=== PATIENT | female | born 1940 | race Caucasian/White ===

== ENCOUNTER → 2017-12-07 | Outpatient (CLI) | payer MEDICARE ==
[~2017-12-07] MED LIST: ALEVE220 M1 PO; APAP650 PO; AREDS; AREDS EYE SUPPLEMENT PO; ASPIR 8181 MG PO; ASPIRIN81 M2 PO; BENADRYL25 MG PO; CARAFATE 1 GM TA1 GM PO; COLACE100 MG PO; COZAAR100 MG PO; FLOMAX0.4 MG PO; HYDROCODON-ACE1 EAC7 PO; HYDROCODONE-AP1 EAC6 PO; IBUPROFEN 200200 M1 PO; LIDODERM 5%1 PATC1 TOP; METAMUCIL PACK3.4 GM PO; MILK OF MA2400 MG/10 PO; MOBIC15 MG PO; NEURONTIN 300300 M1 PO; NORCO 5-325 TA1 EACH PO; ONDANSETRON HCL4 M2 PO; PERCOCET PO; PROTONIX40 MG PO; RESTORIL15 MG PO; TRAMADOL 50 MG50 MG PO; TRAZODONE PO; VITAMIN D1000 UNI1 PO; WELLBUTRIN SR150 MG PO; XARELTO10 MG PO; XARELTO20 MG PO; [UNRECOGNIZED DRUG - OTHER]
== END ==
LOC: M.MRI 14:30
DX: S83.282A Other tear of lateral meniscus, current injury, left knee, initial encounter (principal); M17.12 Unilateral primary osteoarthritis, left knee; M25.462 Effusion, left knee; X58.XXXA Exposure to other specified factors, initial encounter; Y93.89 Activity, other specified; Y92.89 Other specified places as the place of occurrence of the external cause; Y99.8 Other external cause status; Z96.652 Presence of left artificial knee joint

== ENCOUNTER 2017-12-20 15:26 | Emergency (ER) | payer MEDICARE ==
[~2017-12-20] VITALS: Ht 162.6 cm; Wt 63.5 kg
[~2017-12-20 15:26] MED LIST changes: -APAP650 PO; -AREDS EYE SUPPLEMENT PO; -BENADRYL25 MG PO; -COLACE100 MG PO; -FLOMAX0.4 MG PO; -HYDROCODON-ACE1 EAC7 PO; -HYDROCODONE-AP1 EAC6 PO; -METAMUCIL PACK3.4 GM PO; -MILK OF MA2400 MG/10 PO; -NEURONTIN 300300 M1 PO; -ONDANSETRON HCL4 M2 PO; -PERCOCET PO; -XARELTO10 MG PO
[2017-12-20] MEDS ORDERED: AREDS EYE SUPPLEMENT PO (15:36)
[2017-12-20 15:53] LABS: ABSOLUTE BASOPHILS 0.1 thou/uL (0.0-0.2); ABSOLUTE EOSINOPHILS 0.1 thou/uL (0.0-0.7); ABSOLUTE LYMPHOCYTES 2.7 thou/uL (0.8-5.3); ABSOLUTE MONOCYTES 0.8 thou/uL (0.0-1.2); ABSOLUTE NEUTROPHILS 3.9 thou/uL (1.6-8.1); BASOPHILS 0.7 %; EOSINOPHILS 1.8 %; HEMATOCRIT 40.6 % (37.0-47.0); HEMOGLOBIN 13.5 gm/dL (12.0-15.0); LYMPHOCYTES 35.7 %; MCH 30.9 pg (26.0-34.0); MCHC 33.3 g/dL (28.0-37.0); MCV 92.8 fL (80.0-100.0); MONOCYTES 10.6 %; MPV 8.1 fl. (7.2-11.1); NUCLEATED RBCS 0 /100WBC; PLATELET COUNT* 164 thou/uL (150-400); POLYS 51.2 %; RBC 4.38 mil/uL (4.20-5.00); RDW-CV 14.4 % (10.5-14.5); WBC 7.5 thou/uL (4.0-11.0)
[2017-12-20 16:07] LABS: ANION GAP 3 mmol/L (7-16); BUN 23 mg/dL (7-18); CALCIUM 8.6 mg/dL (8.5-10.1); CHLORIDE 107 mmol/L (98-107); CO2 33 mmol/L (21-32); GLUCOSE 97 mg/dL (70-99); POTASSIUM 3.1 mmol/L (3.5-5.1); SODIUM 143 mmol/L (136-145)
[2017-12-20 16:09] LABS: APTT 26.1 Seconds (25.0-31.3); PROTIME 9.7 Seconds (9.20-11.50)
[2017-12-20 16:28] LABS: ALBUMIN 3.2 g/dL (3.4-5.0); ALKALINE PHOSPHATASE 99 U/L (46-116); CK-MB MASS 0.9 ng/mL (<0.5-3.6); LIPASE 127 U/L (73-393); MAGNESIUM 2.3 mg/dL (1.8-2.4); NT-PRO BRAIN NAT PEPTIDE 451 pg/mL (<300); SGOT 21 U/L (15-37); SGPT 19 U/L (30-65); TOTAL BILIRUBIN 0.4 mg/dL (<0.1-1.0); TOTAL PROTEIN 6.6 g/dL (6.4-8.2); TROPONIN-I LEVEL <0.06 ng/mL (<0.06)
[2017-12-20 17:21] VITALS: BP 166/69
--- NOTE | 2017-12-22 12:52 | EKG ---
[place] [address] ELECTROCARDIOGRAM REPORT Name: MALLORIE HODGES Room: [facility]#: [id number] Admission: 12/20/17 Attend Phys: Discharge: 12/20/17 Date of : 36 Report #: [id number] THIS REPORT FOR: //name// [facility] ED Test Date: 2017-12-20 Test Time: 15:31:16 Pat Name: MALLORIE HODGES Department: Room: Gender: F Tug Master: : 1940 Requested By: Anthony Navarro Order Number: [id number] MD: Wai Wood Measurements Intervals [place] Rate: 77 P: 62 LA: 150 QRS: -52 QRSD: 96 T: 32 QT: 413 QTc: 468 Interpretive Statements Sinus rhythm Left anterior fascicular block Anterior infarct, old Compared to ECG 04/27/2017 11:54:54 Myocardial infarct finding now present Left ventricular hypertrophy no longer present Electronically Signed On 12-22-2017 12:52:01 CDT by Wai Wood [email or web address] <ELECTRONICALLY SIGNED> By: Wai Wood MD, [facility] 12/22/17 1252 1531 1531 Wai Wood MD, [facility] /EPI
[2017-12-22] MEDS ORDERED: NEURONTIN 300300 M1 PO (14:17)
== END 2017-12-20 17:21 | disposition home or self-care (01) ==
LOC: M.ERS 15:26
PROVIDERS: Family Medicine
DX: Z71.1 Person with feared health complaint in whom no diagnosis is made (principal); Z96.643 Presence of artificial hip joint, bilateral; Z90.12 Acquired absence of left breast and nipple; Z90.49 Acquired absence of other specified parts of digestive tract; Z88.0 Allergy status to penicillin; Z88.1 Allergy status to other antibiotic agents

== ENCOUNTER 2018-01-03 06:15 | Inpatient (IN) | payer MEDICARE ==
[2017-12-22 10:56] LABS: URINE BILIRUBIN NEGATIVE (Negative); URINE BLOOD NEGATIVE (Negative); URINE CLARITY CLEAR; URINE COLOR YELLOW; URINE GLUCOSE-RANDOM NEGATIVE (Negative); URINE KETONES NEGATIVE (Negative); URINE LEUKOCYTES-REFLEX NEGATIVE (Negative); URINE NITRITE-REFLEX NEGATIVE (Negative); URINE PROTEIN NEGATIVE (Negative); URINE SPECIFIC GRAVITY <= 1.005 (1.005-1.030); URINE UROBILINOGEN 0.2 E.U./dl (0.2-1.0)
[~2018-01-03] VITALS: Ht 170.2 cm; Wt 62.6 kg
[~2018-01-03 06:15] MED LIST changes: +AREDS EYE SUPPLEMENT PO; +NEURONTIN 300300 M1 PO
[2018-01-03 07:37] VITALS: BP 193/99
--- NOTE | 2018-01-03 09:35 | NUR ---
RECIEVED O.T. ORDERS. WILL DEFER TO P.T. AND NURSING AT THIS TIME. PLEASE ORDER FURTHER O.T. SERVICES AT THIS TIME.
[2018-01-03 11:30] VITALS: BP 159/74
--- NOTE | 2018-01-03 12:53 | NUR ---
PATIENT ARRIVED TO UNIT AT 1138. ALERT AND ORIENTED X4. IV IS PATENT AND INFUSING. PAIN BEING MANAGED WITH IV PAIN MEDICATION RECIEVED IN PACU. DENIES NAUSESA AT THIS TIME. PATIENT HAS BEEN ORIENTED TO ROOM. VSS ON 2L O2. CALL LIGHT IS WITHIN REACH. NURSING WILL CONTINUE TO MONITOR.
[2018-01-03 16:00] VITALS: BP 157/78
--- NOTE | 2018-01-03 18:19 | NUR ---
PT IS A&OX4. VITAL SIGNS ARE STABLE ON 2L OF O2 PER NASAL CANNULA WITH CAP-NO IN PLACE. NO REPORTS OF SOA. NAUSEA MAINTAINED WITH IV MEDS. PAIN MAINTAINED WITH PO AND IV MEDS. PT HAS BEEN USING BEDPAN AND HAS NOT AMBULATED YET. REPOSITIONING SELF IN BED. HOURLY ROUNDING MAINTAINED. BED ALARM IN PLACE. CALL LIGHT WITHIN REACH. WILL CONTINUE TO MONITOR.
[2018-01-04 01:08] VITALS: BP 115/61
[2018-01-04 05:39] LABS: HEMATOCRIT 35.1 % (37.0-47.0); HEMOGLOBIN 11.5 gm/dL (12.0-15.0)
[2018-01-04 05:45] VITALS: BP 134/67
--- NOTE | 2018-01-04 06:51 | NUR ---
PATIENT PARTIALLY PROGRESSING TOWARDS GOALS: PATIENT SLEPT WELL THROUGHOUT SHIFT. PATIENT HAD URINARY RETENTION WITH >500 FOUND IN BLADDER AT BEGINNING OF SHIFT. PATIENT CONTINUING TO REFUSE WARD CATHETER. ORDERS RECEIVED FOR FLOMAX. PATIENT NOW VOIDING APPROPRIATELY. PATIENT HAD ONE EPISODE OF INCONTINENCE DURING SLEEP. WALLACE CARE PROVIDED. PATIENT TOLERATED CPM. HOURLY ROUNDING OBSERVED. CALL LIGHT WITHIN REACH
[2018-01-04 08:00] VITALS: BP 162/83
--- NOTE | 2018-01-04 11:28 | NUR ---
ASSUMED CARE OF PATIENT THIS AM AT 0730. PATIENT IS ALERT AND ORIENTED X 4. SHE C/O PAIN TO HER SURGICAL SITE AND GENERALIZED PAIN. PATIENT MEDICATED FOR PAIN THIS AM. PATIENT LATER SAID PAIN MEDICATION WAS NOT EFFECTIVE. PATIENT REMEDICATED FOR PAIN WITH OXYCODONE 5 MG. PATIENT C/O NAUSEA SHORTLY AFTER AND VOMITED ABOUT 2OO ML UNDIGESTED FOOD. PATIENT MEDICATED FOR NAUSEA. SHE STATED NAUSEA HAS RESOLVED. IV FLUIDS INFUSING. PATIENT UP TO THE CHAIR WITH PT. SHE HAS BEEN INCONTINENT OF URINE X 3 TODAY.
--- NOTE | 2018-01-04 16:27 | NUR ---
MET WITH PT AND FRIEND/DISHA SAAB. PT LIVES ALONE IN [place], DISHA LIVES [place]OSS [address]. DISHA PLANS TO STAY WITH PT AT DC FOR A LEAST A WEEK. PT HAS BEEN INDEPENDENT PRIOR TO ADMIT. SHE HAS HAD 2 HIP SURGERIES AND BEEN TO REHAB AT [facility]. SHE REFUSES TO CONSIDER SNF STATING THAT SHE DIDN'T GET GOOD CARE THERE, WANTS TO GO HOME. PT HAS WALKER AND WHEELED WALKER, TOILET RISER AND TUB BENCH. SHE HASN'T HAD HH, DISCUSSED OPTIONS AND CHOSE [facility] THEY WORK WITH DR ENRIQUEZ. PT'S NEPHEW EMMA TRACEY IS HER DPOA. PT ANXIOUS AND STATING THAT THERAPY WAS 'HARD' TODAY. TALKED WITH HER ABOUT POC AND THERAPY X2 TOMORROW AGAIN WITH POSSIBLE DC ON DAY 2. SHE VERBALIZED UNDERSTANDING. WILL FOLLOW
[2018-01-04 16:31] VITALS: BP 162/83
[2018-01-04 17:49] VITALS: BP 141/89
[2018-01-04 20:49] VITALS: BP 175/88
[2018-01-05 03:46] LABS: HEMATOCRIT 42.7 % (37.0-47.0)
[2018-01-05 03:47] LABS: HEMOGLOBIN 13.8 gm/dL (12.0-15.0)
--- NOTE | 2018-01-05 04:58 | NUR ---
PT IS ABLE TO COMMUNICATE HER NEEDS TO STAFF EFFECTIVELY. SHE HAS DENIED THE NEED FOR UNSCHEDULED PAIN MEDICATIONS UP TO THIS TIME. CPM IN USE DURING THIS SHIFT. PT UP TO COMODE SEVERAL TIMES SO FAR THIS SHIFT; WALKER, GAIT BELT AND 1-2 PERSON ASSIST. POLAR PAD IN PLACE DURING THIS SHIFT.
[2018-01-05 05:07] VITALS: BP 170/90
[2018-01-05 08:00] VITALS: BP 119/93
--- NOTE | 2018-01-05 14:32 | NUR ---
SPOKE WITH PT.AND FRIEND PAPO AT BEDSIDE. P.T. AND RECOMMENDING PT.GO TO SNF AT DISCHARGE. PT.AGREEABLE. HAD MANY QUESTIONS. SHE WOULD LIKE TO GO TO [facility]. HAD MANY QUESTIONS ABOUT ROUTINE OVER THERE. HER DOG IS IN A DOGGY RESORT FOR THIS WEEK AND THEN PAPO WILL TAKE CARE OF HER THE TIME SHE IS IN SNF. PT.SEEMS SAD THAT SHE WILL NOT SEE HER DOG IN SEVERAL WEEKS. WILL MAKE REFERRAL TO [facility] FOR PT.
[2018-01-05 15:28] VITALS: BP 138/74
--- NOTE | 2018-01-05 16:53 | NUR ---
VASHTI/'S MANOR CAME TO VISIT WITH PT. SHE SAID THEY CAN ACCEPT PT.TOMORROW TO A SNF BED. PT.AGREEABLE.
--- NOTE | 2018-01-05 19:03 | NUR ---
VSS, ASSUMED CARE IN THE AM, ASSESSMENT PERFROMED AND CHARTED, FALL PRECAUTIONS IN PLACE AND CALL LIGHT IN RECAH, PT IS A&O4 AND ON RA SHE GETS UP WITH ONE AND WALK, STATES PAIN IN LEFT KNEE AND RATES IT 3 OUT OF 10, PT GOAL IS TO WORK WITH PT AND FIND PLACEMENT AT SNF. AT THIS TIME HOULRY ROUNDS COMPLETED ABD PT IS IN BED WITH CPM GOING AT -5/75, NO OTHER STATUS CHANGE AT THIS TIME,
[2018-01-05 20:45] VITALS: BP 153/81
[2018-01-05 23:54] VITALS: BP 133/63
[2018-01-06 03:41] VITALS: BP 143/65
[2018-01-06 03:46] VITALS: BP 116/62
--- NOTE | 2018-01-06 06:00 | NUR ---
PATIENT HAS REMAINED ALERT AND ORIENTED X 4 THROUGHOUT THE SHIFT AND RESTING QUIETLY ON HOURLY ROUNDS. DRESSING LEFT KNEE CLEAN AND DRY. CPM IN USE AT SHIFT CHANGE. TOLERATED WELL. MEDICATED FOR PAIN X 2 OF THIS WRITING. PASSING GAS, NO BM. MILK OF MAGNESIA WITH COLACE PROVIDED AT HS. MOD ASSIST OF ONE FOR TRANSFERS TO BEDSIDE COMMODE WITH GAIT BELT AND WALKER. VITAL SIGNS STABLE. CONTINUE TO MONITOR.
[2018-01-06 07:30] VITALS: BP 135/74
--- NOTE | 2018-01-06 12:02 | NUR ---
PT WILL DC TO [facility]ILL[facility]ACILITY. FAMILY AGREEABLE. FAXED DC ORDERS AND SPOKE WITH KHALIDA ON THE PHONE. WE SHOULD ANTICIPATE A DC TODAY.
[2018-01-06] MEDS ORDERED: APAP650 PO (12:15)
[2018-01-06] MEDS ORDERED: BENADRYL25 MG PO (12:16)
[2018-01-06] MEDS ORDERED: COLACE100 MG PO (12:17)
[2018-01-06] MEDS ORDERED: FLOMAX0.4 MG PO (12:18)
--- NOTE | 2018-01-06 12:32 | NUR ---
PER KHALIDA AT [facility], THEIR [employer] VAN WILL PICK PT.UP BETWEEN 1:00-1:30. PT.INFORMED. SHE WILL CALL HER FRIEND TO COME INCOME AUDITOR SOME OF THER PERSONAL ITEMS. CHART COPIED TO GO WITH PT. NURSING TO CALL REPORT.
[2018-01-06] MEDS ORDERED: HYDROCODON-ACE1 EAC7 PO (12:38)
[2018-01-06] MEDS ORDERED: METAMUCIL PACK3.4 GM PO (12:40)
[2018-01-06] MEDS ORDERED: MILK OF MA2400 MG/10 PO (12:41)
[2018-01-06] MEDS ORDERED: PERCOCET PO (12:42)
[2018-01-06] MEDS ORDERED: XARELTO10 MG PO (12:44)
[2018-01-06] MEDS ORDERED: ONDANSETRON HCL4 M2 PO (12:44)
[2018-01-06 12:47] VITALS: BP 135/74
--- NOTE | 2018-01-06 14:50 | NUR ---
PATIENT A&OX4, ROOM AIR, NO IV ACCESS AT THIS TIME. UP WITH ASSISTX1 WITH GAITBELT AND WALKER. WALKER IS FROM PATIENT'S HOME, TAGGED AND SENT WITH PATIENT AT DISCHARGE. C/O PAIN TO LEFT KNEE, PARTIAL RELIEF WITH MEDICATION. POLAR PACK SENT HOME WITH FAMILY FRIEND. PATIENT DISCHARGED TO [facility], CALLED AND GAVE REPORT TO SEPTEMBER. VERBALIZES UNDERSTANDING, NO FURTHER QUESTIONS AT THIS TIME. APPROPRIATE AND COOPORATIVE WITH CARE. PATIENT LEFT UNIT AT 1420 VIA W/C WITH ALL BELONGINGS. NOTHING LEFT BEHIND.
--- NOTE | 2018-01-07 10:28 | NUR ---
cell phone newcomer hostess given to carly at [facility]
--- NOTE | 2018-01-10 08:36 | OP ---
[facility] [address] [place] [address] OPERATIVE REPORT Name: MALLORIE HODGES Room: [address] IN M.R.#: [id number] Admission: 01/03/18 Attend Phys: Joceline Doshi Discharge: 01/06/18 Date of : 36 Report #: [id number] THIS REPORT FOR: //name// CC: Gen Partida DATE OF SERVICE: 01/03/2018 PREOPERATIVE DIAGNOSIS: Left knee osteoarthritis. POSTOPERATIVE DIAGNOSIS: Left knee osteoarthritis. PROCEDURE: Left total knee arthroplasty. SURGEON: Gen Calle II, DO COLOR PASTE MIXER: NEGRO Jimenez. ANESTHESIA: General endotracheal. ESTIMATED BLOOD LOSS: 50 mL. ANTIBIOTICS: Per operative record. DRAINS: Medium Hemovac. COMPLICATIONS: None. CONDITION OF THE PATIENT: Stable to recovery room. IMPLANTS: Listed in the operative record and progress note. BRIEF HISTORY: The patient was seen in preoperative area. Preoperative H and P was performed. Site was marked, questions were answered. Risks and benefits were discussed with the patient in detail about surgery. The patient wished to proceed with surgery, assumed all risks. OPERATIVE PROCEDURE: The patient was taken to the operative suite, placed supine on the operating table, given appropriate anesthesia. Well-padded tourniquet was applied to the upper thigh, which was inflated to 300 mmHg after gravity exsanguination. The operative knee was sterilely prepped and draped. Surgery begun by a midline incision, it was carried down through the subcutaneous tissues. A medial parapatellar arthrotomy was performed and carried down to bone. The patella was then everted and excess soft tissue was removed from around the femur. Femoral cutting block was then applied, checked [facility] [address] [place] [id number] OPERATIVE REPORT Name: MALLORIE HODGES Room: [address] IN ..#: [id number] Admission: 01/03/18 Attend Phys: Joceline Doshi Discharge: 01/06/18 Date of : 36 Report #: [id number] with a drop jd for rotational alignment, pinned into appropriate position and appropriate cuts were made. A 4-in-1 cutting block was then applied to check for rotational alignment, pinned into appropriate position and appropriate cuts were made. The tibia was then exposed. The excess meniscus was removed. Retractors were placed on the collateral ligaments. The tibial cutting block was applied, pinned in appropriate position, checked with a drop jd for rotational alignment and slope and appropriate cut was made. The tibial bone was removed. The tibial base plate was then applied, checked for rotational alignment with the drop jd and pinned into appropriate position. The femur was then applied and box cut was reamed. This was then trialed with the appropriate spacer, which showed excellent fit and fill and excellent stability of the knee through all range of motion. Patella was then reamed in appropriate fashion and sized to appropriate size. Three peg holes were drilled and it was then trialed, which shown to have excellent flexion, extension and excellent tracking of the patella within the groove. These trials were then removed. The tibia was punched in appropriate fashion. Bone ends were cleansed with Pulsavac irrigation and the cement was mixed and applied to the final implants. These were then malleted into position and held with the knee in extension and compressed to allow cement to cure. After it cured, excess was removed utilizing a Orient and osteotome. The wound was then copiously irrigated and the final spacer was then malleted into position. The tourniquet was deflated. Hemostasis was maintained with electrocautery. A pain cocktail was injected. PRP gel was sprayed throughout the internal aspects of the knee. Medium Hemovac drain was then applied and the capsule was closed with 2 FiberWire and 1 Vicryl in a [id number] fashion. Skin was then closed with a 2-0 Vicryl and a running 3-0 Monocryl. Dermabond and sterile dressings were applied. Robin wrap and PolarCare applied. The patient was transported to the recovery room in stable fashion. Counts were correct throughout the procedure. <ELECTRONICALLY SIGNED> By: Gen Calle II, DO 01/10/18 0836 0646 0734Gen Calle II, DO /nt
== END 2018-01-06 14:20 | DRG 470 ==
LOC: M.PRE 06:15 → M.TBA 06:58 → M.ORTHSURG 06:58 → M.PRE 09:21 → M.ORTHSURG 11:57 → M.PRE 14:28 → M.ORTHSURG 01-06 14:20
PROVIDERS: Orthopaedic Surgery; ADMIT Internal Medicine
PROC: 0SRD0J9 Replacement of Left Knee Joint with Synthetic Substitute, Cemented, Open Approach (ICD-10-PCS; principal; 2018-01-03)
DX: M17.12 Unilateral primary osteoarthritis, left knee (principal); Z96.643 Presence of artificial hip joint, bilateral; Z90.12 Acquired absence of left breast and nipple; Z88.1 Allergy status to other antibiotic agents; Z88.0 Allergy status to penicillin; Z90.49 Acquired absence of other specified parts of digestive tract; Z92.3 Personal history of irradiation

== ENCOUNTER → 2018-04-03 | Outpatient (CLI) | payer MEDICARE ==
[~2018-04-03] MED LIST changes: +APAP650 PO; +BENADRYL25 MG PO; +COLACE100 MG PO; +FLOMAX0.4 MG PO; +HYDROCODON-ACE1 EAC7 PO; +METAMUCIL PACK3.4 GM PO; +MILK OF MA2400 MG/10 PO; +ONDANSETRON HCL4 M2 PO; +PERCOCET PO; +XARELTO10 MG PO
== END ==
LOC: M.CT 13:00
DX: J98.4 Other disorders of lung (principal); K76.9 Liver disease, unspecified; R91.8 Other nonspecific abnormal finding of lung field

== ENCOUNTER 2018-04-27 08:32 | Emergency (ER) | payer MEDICARE ==
[~2018-04-27] VITALS: Ht 162.6 cm; Wt 62.6 kg
[2018-04-27] MEDS ORDERED: HYDROCODONE-AP1 EAC6 PO (09:42)
[2018-04-27 10:35] VITALS: BP 178/94
== END 2018-04-27 10:36 | disposition home or self-care (01) ==
LOC: M.ERS 08:32
DX: S52.592A Other fractures of lower end of left radius, initial encounter for closed fracture (principal); Z96.643 Presence of artificial hip joint, bilateral; Z90.49 Acquired absence of other specified parts of digestive tract; Z88.1 Allergy status to other antibiotic agents; Z88.0 Allergy status to penicillin; W01.0XXA Fall on same level from slipping, tripping and stumbling without subsequent striking against object, initial encounter; Y93.89 Activity, other specified; Y92.89 Other specified places as the place of occurrence of the external cause; Y99.8 Other external cause status

== ENCOUNTER 2018-07-22 17:48 | Emergency (ER) | payer MEDICARE ==
[~2018-07-22] VITALS: Ht 162.6 cm; Wt 60.3 kg
[~2018-07-22 17:48] MED LIST changes: +HYDROCODONE-AP1 EAC6 PO
[2018-07-22] MEDS ORDERED: ACETAMINOPHEN-1 EAC1 PO (18:04)
[2018-07-22 20:01] VITALS: BP 191/104
== END 2018-07-22 20:02 | disposition home or self-care (01) ==
LOC: M.ERS 17:48
DX: S61.411A Laceration without foreign body of right hand, initial encounter (principal); S00.03XA Contusion of scalp, initial encounter; Z96.643 Presence of artificial hip joint, bilateral; Z96.653 Presence of artificial knee joint, bilateral; Z90.49 Acquired absence of other specified parts of digestive tract; Z90.12 Acquired absence of left breast and nipple; Z88.0 Allergy status to penicillin; Z88.1 Allergy status to other antibiotic agents; W00.0XXA Fall on same level due to ice and snow, initial encounter; Y93.89 Activity, other specified; Y92.89 Other specified places as the place of occurrence of the external cause; Y99.8 Other external cause status

== ENCOUNTER 2018-08-30 11:58 | Emergency (ER) | payer MEDICARE ==
[~2018-08-30] VITALS: Ht 162.6 cm; Wt 56.2 kg
[~2018-08-30 11:58] MED LIST changes: +ACETAMINOPHEN-1 EAC1 PO
[2018-08-30] MEDS ORDERED: MEDROLDOSEPACK PO (12:31)
[2018-08-30 12:44] VITALS: BP 160/96
== END 2018-08-30 12:44 | disposition home or self-care (01) ==
LOC: M.ERS 11:58
DX: M79.641 Pain in right hand (principal); Z88.0 Allergy status to penicillin; Z88.1 Allergy status to other antibiotic agents; Z96.643 Presence of artificial hip joint, bilateral; Z90.49 Acquired absence of other specified parts of digestive tract; Z96.652 Presence of left artificial knee joint; Z90.12 Acquired absence of left breast and nipple

== ENCOUNTER → 2018-12-29 | Outpatient (CLI) | payer MEDICARE ==
[~2018-12-29] MED LIST changes: +MEDROLDOSEPACK PO
== END ==
LOC: M.ULTRA 14:38
DX: M71.21 Synovial cyst of popliteal space [Baker], right knee (principal); Z88.8 Allergy status to other drugs, medicaments and biological substances; Z88.0 Allergy status to penicillin

== ENCOUNTER → 2019-05-18 | Outpatient (CLI) | payer MEDICARE | LOC: M.ULTRA 14:21 | DX: I83.91 Asymptomatic varicose veins of right lower extremity (principal); L03.116 Cellulitis of left lower limb; Z88.8 Allergy status to other drugs, medicaments and biological substances; Z88.0 Allergy status to penicillin ==

== ENCOUNTER 2019-12-27 10:56 | Observation (INO) | payer MEDICARE ==
[~2019-12-27] VITALS: Ht 162.6 cm; Wt 63.0 kg
[2019-12-27 10:56] VITALS: BP 146/97
[2019-12-27] MEDS ORDERED: ELIQUIS2.5 MG PO (11:03)
[2019-12-27 11:55] LABS: ABSOLUTE BASOPHILS 0.1 thou/uL (0.0-0.2); ABSOLUTE EOSINOPHILS 0.1 thou/uL (0.0-0.7); ABSOLUTE LYMPHOCYTES 1.5 thou/uL (0.8-5.3); ABSOLUTE MONOCYTES 0.8 thou/uL (0.0-1.2); ABSOLUTE NEUTROPHILS 5.5 thou/uL (1.6-8.1); EOSINOPHILS 1.5 %; HEMATOCRIT 42.8 % (37.0-47.0); HEMOGLOBIN 14.6 gm/dL (12.0-15.0); MCH 31.4 pg (26.0-34.0); MCHC 34.1 g/dL (28.0-37.0); MCV 92.1 fL (80.0-100.0); MONOCYTES 9.7 %; MPV 7.8 fl. (7.2-11.1); NUCLEATED RBCS 0 /100WBC; PLATELET COUNT* 148 thou/uL (150-400); POLYS 68.8 %; RBC 4.65 mil/uL (4.20-5.00); RDW-CV 14.3 % (10.5-14.5)
[2019-12-27 12:02] LABS: CALCIUM 8.5 mg/dL (8.5-10.1); CREATININE 1.1 mg/dL (0.6-1.3); POTASSIUM 3.2 mmol/L (3.5-5.1)
[2019-12-27 12:09] LABS: APTT 24.3 Seconds (25.0-31.3); PROTIME 10.1 Seconds (9.20-11.50)
[2019-12-27 12:14] LABS: ALBUMIN 3.1 g/dL (3.4-5.0); TOTAL BILIRUBIN 0.5 mg/dL (<0.1-1.0); TOTAL PROTEIN 6.4 g/dL (6.4-8.2)
[2019-12-27 14:10] LABS: CHOLESTEROL 202 mg/dL (<200); HDL CHOLESTEROL 65 mg/dL (>40); LDL CHOLESTEROL 122 mg/dL (<100); TC:HDL 3.1 Ratio (Not establshd); TRIGLYCERIDE 75 mg/dL (<150); VLDL 15 mg/dL (<40)
[2019-12-27 14:11] LABS: SERUM ASSESSMENT Clear
[2019-12-27 14:48] VITALS: BP 139/83
[2019-12-27 15:00] VITALS: BP 185/77
[2019-12-27 16:20] VITALS: BP 153/87
--- NOTE | 2019-12-27 16:51 | EKG ---
[place] [address] ELECTROCARDIOGRAM REPORT Name: CARROLLMALLORIE Room: [address]#: [id number] Admission: 12/27/19 Attend Phys: Radha Drake, Discharge: Date of : 36 Date of Service: 12/27/19 1105 Report #: [id number] THIS REPORT FOR: //name// [facility] ED Test Date: 2019-12-27 Test Time: 11:05:18 Pat Name: MALLORIE HODGES Department: Room: [facility] Gender: F V Belt Curer: [facility] : 1940 Requested By: Freya Douglas Order Number: [id number] MD: Dom Chand Measurements Intervals [place] Rate: 81 P: 64 FL: 158 QRS: -40 QRSD: 101 T: 67 QT: 417 QTc: 484 Interpretive Statements Sinus rhythm Ventricular trigeminy LAFB Anterior infarct, old Compared to ECG 12/20/2017 15:31:16 Ventricular premature complex(es) now present Myocardial infarct finding still present Electronically Signed On 12-27-2019 16:51:38 CDT by Dom Chand [email or web address] <ELECTRONICALLY SIGNED> By: Dom Chand MD, FACC 12/27/19 1651 1105 1105 Dom Chand MD, FAC /EPI
--- NOTE | 2019-12-27 17:32 | 2DMMODE ---
[place] [address] 2 D/M-MODE ECHOCARDIOGRAM Name: CARROLL,MALLORIE Wagner Room: [address] Maya#: [id number] Admission: 12/27/19 Attend Phys: Radha Drake, Discharge: Date of : 36 Date of Service: 12/27/19 1731 Report #: [id number] THIS REPORT FOR: cc: Miguelangel Munson,Miguelangel Low,Dom Guadalupe MD [facility] ~ APPROVED REPORT Study performed: 12/27/2019 15:20:04 EXAM: Comprehensive 2D, Doppler, and color-flow Echocardiogram Patient Location: In-Patient Room #: [facility] Status: routine BSA: 1.68 HR: 79 bpm BP: 150/90 mmHg Rhythm: NSR Other Information Study Quality: Good Indications Chest Pain 2D Dimensions IVSd: 14.92 (7-11mm) LVOT Diam: 21.75 (18-24mm) LVDd: 36.59 mm PWd: 10.44 (7-11mm) Ascending Ao: 23.77 (22-36mm) LVDs: 20.51 (25-40mm) Aortic Root: 32.80 mm Volumes Left Atrial Volume (Systole) LA ESV Index: 18.50 mL/m2 Aortic Valve AoV Peak Nii.: 1.08 m/s AO Peak Gr.: 4.63 mmHg LVOT Max P.22 mmHg AO Mean Gr.: 2.40 mmHg LVOT Mean P.99 mmHg LVOT Max V: 0.75 m/s AO V2 VTI: 14.96 cm LVOT Mean V: 0.45 m/s RICKY (VTI): 3.36 cm2 LVOT V1 VTI: 13.51 [place] [address] 2 D/M-MODE ECHOCARDIOGRAM Name: MALLORIE HODGES Room: [address]#: [id number] Admission: 12/27/19 Attend Phys: Radha Drake, Discharge: Date of : 36 Date of Service: 12/27/19 1731 Report #: [id number] Mitral Valve E/A Ratio: 0.59 MV Decel. Time: 194.76 ms MV E Max Nii.: 0.44 m/s MV PHT: 56.48 ms MVA (PHT): 3.90 cm2 TDI E/Lateral E': 6.29 E/Medial E': 4.89 Medial E' Nii.: 0.09 m/s Lateral E' Nii.: 0.07 m/s Pulmonary Valve PV Peak Nii.: 0.83 m/s PV Peak Gr.: 2.74 mmHg Tricuspid Valve RAP Estimate: 5.00 mmHg TR Peak Gr.: 22.69 mmHg RVSP: 27.00 mmHg PA Pressure: 27.00 mmHg Left Ventricle The left ventricle is normal size. There is normal LV segmental wall motion. Moderate septal hypertrophy is present. Left ventricular systolic function is normal. The left ventricular ejection fraction is within the normal range. LVEF is 55-60%. Grade I - abnormal relaxation pattern. Right Ventricle The right ventricle is normal size. The right ventricular systolic function is normal. Atria The left atrium size is normal. The right atrium size is normal. Aortic Valve The aortic valve is normal in structure. No aortic regurgitation is present. There is no aortic valvular stenosis. Mitral Valve Mitral valve leaflets are thickened. There is no mitral valve regurgitation noted. No evidence of mitral valve stenosis. Tricuspid Valve The tricuspid valve is normal in structure. Mild tricuspid regurgitation. estimated pa pressure 30 [place] [address] 2 D/M-MODE ECHOCARDIOGRAM Name: MALLORIE HODGES Room: [address]#: [id number] Admission: 12/27/19 Attend Phys: Radha Drake, Discharge: Date of : 36 Date of Service: 12/27/19 1731 Report #: [id number] Pulmonic Valve The pulmonary valve is normal in structure. There is no pulmonic valvular regurgitation. Great Vessels The aortic root is normal in size. IVC is normal in size and collapses >50% with inspiration. Pericardium There is no pericardial effusion. <Conclusion> LVEF is 55-60%. <ELECTRONICALLY SIGNED> By: Dom Chand MD, [facility] 12/27/19 1731 173 173 Dom Chand MD, FACC /INF
[2019-12-27 20:00] VITALS: BP 125/75
[2019-12-28] VITALS (11 sets, daily range): BP systolic 140–215; BP diastolic 60–105
[2019-12-28 05:11] LABS: CREATININE 1.3 mg/dL (0.6-1.3); POTASSIUM 3.4 mmol/L (3.5-5.1)
[2019-12-28] MEDS ORDERED: ASPIR 8181 MG PO (12:39)
[2019-12-28] MEDS ORDERED: CARVEDILOL3.125 MG PO (12:39)
[2019-12-28] MEDS ORDERED: LIPITOR 40 MG T40 M1 PO (12:39)
[2019-12-28] MEDS ORDERED: POTASSIUM20 PO (16:33)
--- NOTE | 2019-12-31 16:04 | CARD ---
[address] [address] CARDIAC CATH REPORT Name: MALLORIE HODGES Room: [address] Lazara Trejo#: [id number] Admission: 12/27/19 Attend Phys: Radha Drake MD Discharge: 12/28/19 Date of : 36 Report #: [id number] THIS REPORT FOR: //name// cc: Miguelangel Munson Vincent R. DO ~ APPROVED REPORT Study performed: 12/28/2019 09:07:10 Patient Details Patient Status: In-Patient Room #: The patient is a 79 year-old female Procedures Performed diagnostic cardiac catheterization Indication Abnormal ECG, Dizziness and vertigo, borderline elevation of troponin Risk Factors Hypertension Admission/Lab Medications/Medications given during procedure Heparin Unfract. Procedure Narrative The patient was brought electively to the Cardiac Catheterization Laboratory and was prepped and draped in a sterile manner. The right wrist was infiltrated with 1% Lidocaine subcutaneous anesthesia. A 6 sheath was inserted into the right radial artery. Coronary angiography was performed using coronary diagnostic catheters. The right coronary system was accessed and visualized with a Diagnostic catheter. The left coronary system was accessed and visualized with a Diagnostic catheter. The left ventricle was accessed and visualized with a Diagnostic catheter. Left ventricular/Aortic Valve gradient assessed via catheter pullback. Left ventriculogram was performed in [place] projection. Closure device was deployed with a 6 Fr vascband. The patient tolerated the procedure well and there were no complications associated with the procedure. There was no hematoma. Coronary Angiography The patient's coronary anatomy is right dominant. [place] Artery Percent Stenosis [facility] [address] [place] [address] CARDIAC CATH REPORT Name: MALLORIE HODGES Kristy Room: [address] Lazara Trejo#: [id number] Admission: 12/27/19 Attend Phys: Radha Drake MD Discharge: 12/28/19 Date of : 36 Report #: [id number] Left Main: 0 % Prox LAD: 0 % Mid/Distal LAD: 30 % Circumflex: 0 % RCA: 40 % Ramus: % Left Ventriculography The left ventricular ejection fraction is estimated to be 60-65%. Left ventricular wall motion abnormalities are not present. There is no mitral insufficiency. Hemodynamics The left ventricular end diastolic pressure is 15 mmHg. There was no gradient across the aortic valve upon pullback. Pullback from the left ventricle to the aorta revealed no gradient across the aortic valve. Conclusion 1. minimal CAD with a maximal stenosis of 40% in the mid rca 2. LVEF 60-65% 3. No evidence of RI Recommendations Aggressive Medical Therapy <ELECTRONICALLY SIGNED> By: Dom Chand MD, [facility] 12/31/19 1604 1604 1604Dwendy Chand MD, FACC /INF
== END 2019-12-28 17:17 | disposition home or self-care (01) ==
LOC: M.ERS 10:56 → M.TBA-ER 13:22 → M.2W 15:03
PROVIDERS: Personal Emergency Response Attendant; Registered Nurse; ADMIT Internal Medicine; ATTEND Internal Medicine
DX: I25.10 Atherosclerotic heart disease of native coronary artery without angina pectoris (principal); I21.4 Non-ST elevation (NSTEMI) myocardial infarction; I49.9 Cardiac arrhythmia, unspecified; E78.5 Hyperlipidemia, unspecified; M54.9 Dorsalgia, unspecified; G89.29 Other chronic pain; D68.59 Other primary thrombophilia; E87.6 Hypokalemia; R42 Dizziness and giddiness; R11.2 Nausea with vomiting, unspecified; R79.89 Other specified abnormal findings of blood chemistry; M48.00 Spinal stenosis, site unspecified; Z79.01 Long term (current) use of anticoagulants; I82.5Z2 Chronic embolism and thrombosis of unspecified deep veins of left distal lower extremity

== ENCOUNTER 2020-07-20 20:59 | Inpatient (IN) | payer MEDICARE ==
[~2020-07-20] VITALS: Ht 162.6 cm; Wt 63.3 kg
[~2020-07-20 20:59] MED LIST changes: +CARVEDILOL3.125 MG PO; +ELIQUIS2.5 MG PO; +LIPITOR 40 MG T40 M1 PO; +POTASSIUM20 PO
[2020-07-20 21:31] LABS: ABSOLUTE BASOPHILS 0.1 thou/uL (0.0-0.2); ABSOLUTE EOSINOPHILS 0.2 thou/uL (0.0-0.7); ABSOLUTE LYMPHOCYTES 3.1 thou/uL (0.8-5.3); ABSOLUTE MONOCYTES 1.1 thou/uL (0.0-1.2); ABSOLUTE NEUTROPHILS 4.4 thou/uL (1.6-8.1); EOSINOPHILS 2.6 %; HEMATOCRIT 45.3 % (37.0-47.0); LYMPHOCYTES 34.9 %; MCH 30.3 pg (26.0-34.0); MCHC 33.1 g/dL (28.0-37.0); MCV 91.7 fL (80.0-100.0); MONOCYTES 11.8 %; MPV 7.3 fl. (7.2-11.1); NUCLEATED RBCS 0 /100WBC; PLATELET COUNT* 132 thou/uL (150-400); POLYS 49.7 %; RBC 4.94 mil/uL (4.20-5.00); RDW-CV 15.2 % (10.5-14.5); WBC 8.9 thou/uL (4.0-11.0)
[2020-07-20 21:39] LABS: CALCIUM 8.7 mg/dL (8.5-10.1); POTASSIUM 3.2 mmol/L (3.5-5.1)
[2020-07-20 21:44] LABS: ALBUMIN 3.1 g/dL (3.4-5.0); APTT 27.5 Seconds (25.0-31.3); PROTIME 10.2 Seconds (9.20-11.50); TOTAL BILIRUBIN 0.6 mg/dL (<0.1-1.0); TOTAL PROTEIN 6.7 g/dL (6.4-8.2)
[2020-07-20 22:41] VITALS: BP 248/126
[2020-07-21] VITALS (22 sets, daily range): BP systolic 104–181; BP diastolic 46–92
[2020-07-21 04:42] LABS: HEMATOCRIT 43.2 % (37.0-47.0); HEMOGLOBIN 14.3 gm/dL (12.0-15.0); MCH 30.4 pg (26.0-34.0); MCV 91.9 fL (80.0-100.0); MPV 7.6 fl. (7.2-11.1); RBC 4.7 mil/uL (4.20-5.00); RDW-CV 14.8 % (10.5-14.5); WBC 9.5 thou/uL (4.0-11.0)
[2020-07-21 04:55] LABS: CALCIUM 8.5 mg/dL (8.5-10.1); POTASSIUM 3.6 mmol/L (3.5-5.1)
--- NOTE | 2020-07-21 17:10 | EKG ---
[place] [address] ELECTROCARDIOGRAM REPORT Name: MALLORIE HODGES Room: [address] IN .R.#: [id number] Admission: 07/20/20 Attend Phys: Radha Drake, Discharge: Date of : 36 Date of Service: 07/20/202142 Report #: [id number] THIS REPORT FOR: //name// [facility] ED Test Date: 2020-07-20 Test Time: 21:43:19 Pat Name: MALLORIE HODGES Department: Room: [facility] Gender: F Green Material Value Added Assessor: RONEY : 1940 Requested By: Freya Douglas Order Number: [id number] MD: Wai Wood Measurements Intervals [place] Rate: 96 P: 68 SC: 158 QRS: -53 QRSD: 104 T: 56 QT: 392 QTc: 496 Interpretive Statements Sinus tachycardia Ventricular trigeminy LAE, consider biatrial enlargement Left anterior fascicular block Left ventricular hypertrophy Anterior infarct, old Compared to ECG 12/27/2019 11:05:18 Left ventricular hypertrophy now present Sinus rate has increased Myocardial infarct finding still present Electronically Signed On 07-21-2020 17:10:29 POCKET OPERATOR by Wai Wood [email or web address] <ELECTRONICALLY SIGNED> By: Wai Wood MD, [facility] 07/21/20 1710 42 42 Wai Wood MD, [facility] /EPI
[2020-07-22] VITALS (15 sets, daily range): BP systolic 121–164; BP diastolic 60–85
[2020-07-22 05:51] LABS: ALBUMIN 2.4 g/dL (3.4-5.0); ALKALINE PHOSPHATASE 97 U/L (46-116); ANION GAP 5 mmol/L (7-16); BUN 21 mg/dL (7-18); CALCIUM 8.4 mg/dL (8.5-10.1); CHLORIDE 110 mmol/L (98-107); CO2 30 mmol/L (21-32); CREATININE 1.1 mg/dL (0.6-1.3); GLUCOSE 99 mg/dL (70-99); POTASSIUM 3.7 mmol/L (3.5-5.1); SGOT 23 U/L (15-37); SGPT 24 U/L (30-65); SODIUM 145 mmol/L (136-145); TOTAL BILIRUBIN 0.7 mg/dL (<0.1-1.0); TOTAL PROTEIN 5.3 g/dL (6.4-8.2)
[2020-07-22 05:59] LABS: SERUM ASSESSMENT Clear
[2020-07-22 07:31] LABS: CHOLESTEROL 166 mg/dL (<200); HDL CHOLESTEROL 52 mg/dL (>40); LDL CHOLESTEROL 105 mg/dL (<100); TC:HDL 3.2 Ratio (Not establshd); TRIGLYCERIDE 49 mg/dL (<150); VLDL 10 mg/dL (<40)
--- NOTE | 2020-07-22 14:34 | 2DMMODE ---
[place] [address] 2 D/M-MODE ECHOCARDIOGRAM Name: MALLORIE HODGES Room: [address] IN [facility].#: [id number] Admission: 07/20/20 Attend Phys: Radha Drake, Discharge: Date of : 36 Date of Service: 07/22/20 1434 Report #: [id number] THIS REPORT FOR: cc: Miguelangel Munson,Miguelangel Bobo,Wai Moya MD [facility] ~ APPROVED REPORT Study performed: 07/22/2020 12:14:24 EXAM: Comprehensive 2D, Doppler, and color-flow Echocardiogram Patient Location: In-Patient Room #: 007 Status: routine BSA: 1.63 HR: 67 bpm BP: 135/60 mmHg Rhythm: NSR Other Information Study Quality: Good Indications CVA/TIA Echo Enhancing Agent Indication: Rule out Shunt Agent(s) / Amount(s) Used: Agitated Saline 10 cc 2D Dimensions IVSd: 10.46 (7-11mm) LVOT Diam: 18.99 (18-24mm) LVDd: 40.89 mm PWd: 9.25 (7-11mm) Ascending Ao: 25.18 (22-36mm) LVDs: 26.58 (25-40mm) Aortic Root: 32.63 mm Volumes Left Atrial Volume (Systole) LA ESV Index: 26.10 mL/m2 Aortic Valve AoV Peak Nii.: 1.27 m/s AO Peak Gr.: 6.46 mmHg LVOT Max P.61 mmHg AO Mean Gr.: 3.50 mmHg LVOT Mean P.68 [place] [address] 2 D/M-MODE ECHOCARDIOGRAM Name: MALLORIE HODGES Room: [address] IN ..#: [id number] Admission: 07/20/20 Attend Phys: Radha Drake, Discharge: Date of : 36 Date of Service: 07/22/20 1434 Report #: [id number] LVOT Max V: 0.95 m/s AO V2 VTI: 24.47 cm LVOT Mean V: 0.59 m/s RICKY (VTI): 2.18 cm2 LVOT V1 VTI: 18.82 cm Mitral Valve E/A Ratio: 0.70 MV Decel. Time: 298.36 ms MV E Max Nii.: 0.63 m/s MV PHT: 86.52 ms MVA (PHT): 2.54 cm2 TDI E/Lateral E': 7.88 E/Medial E': 6.30 Medial E' Nii.: 0.10 m/s Lateral E' Nii.: 0.08 m/s Pulmonary Valve PV Peak Nii.: 0.75 m/s PV Peak Gr.: 2.22 mmHg Tricuspid Valve RAP Estimate: 5.00 mmHg TR Peak Gr.: 24.38 mmHg RVSP: 29.00 mmHg PA Pressure: 29.00 mmHg Left Ventricle The left ventricle is normal size. There is normal LV segmental wall motion. There is normal left ventricular wall thickness. Left ventricular systolic function is normal. The left ventricular ejection fraction is within the normal range. LVEF is 55-60%. Grade I - abnormal relaxation pattern. Right Ventricle The right ventricle is normal size. The right ventricular systolic function is normal. Atria The left atrium size is normal. The interatrial septum is intact with no evidence for an atrial septal defect. The right atrium size is normal. Aortic Valve The aortic valve is normal in structure. No aortic regurgitation is present. There is no aortic valvular stenosis. Mitral Valve The mitral valve is normal in structure. [place] [address] 2 D/M-MODE ECHOCARDIOGRAM Name: MALLORIE HODGES Kristy Room: [address] IN ..#: [id number] Admission: 07/20/20 Attend Phys: Radha Drake, Discharge: Date of : 36 Date of Service: 07/22/20 1434 Report #: [id number] No evidence of mitral valve stenosis. Tricuspid Valve The tricuspid valve is normal in structure. Mild tricuspid regurgitation. No pulmonary hypertension. Pulmonic Valve The pulmonary valve is normal in structure. Trace pulmonic regurgitation. Great Vessels The aortic root is normal in size. IVC is normal in size and collapses >50% with inspiration. Pericardium There is no pericardial effusion. <Conclusion> The left ventricle is normal size. There is normal left ventricular wall thickness. Left ventricular systolic function is normal. The left ventricular ejection fraction is within the normal range. LVEF is 55-60%. Grade I - abnormal relaxation pattern. The right ventricle is normal size. The left atrium size is normal. The aortic valve is normal in structure. The mitral valve is normal in structure. The tricuspid valve is normal in structure. IVC is normal in size and collapses >50% with inspiration. There is no pericardial effusion. There is normal LV segmental wall motion. The interatrial septum is intact with no evidence for an atrial septal defect. <ELECTRONICALLY SIGNED> By: Wai Wood MD, [facility] 07/22/20 1434 1434 1434 Wai Wood MD, FACC /INF
[2020-07-23] VITALS: BP 142/64
[2020-07-23 02:06] LABS: GLYCOHEMOGLOBIN (HGB A1C) 5.6 % (4.8-5.6)
[2020-07-23 04:00] VITALS: BP 167/76
[2020-07-23 08:00] VITALS: BP 148/76
[2020-07-23] MEDS ORDERED: MIRALAX17 GM PO (09:07)
[2020-07-23] MEDS ORDERED: OXYCODONE HCL 55 MG PO (09:07)
[2020-07-23] MEDS ORDERED: MINOCYCLINE HC100 M2 PO (09:07)
[2020-07-23] MEDS ORDERED: COLACE 100 MG100 MG PO (09:07)
[2020-07-23] MEDS ORDERED: MILK OF MA2400 MG/11 PO (09:07)
[2020-07-23] MEDS ORDERED: LIPITOR 20 MG T20 M1 PO (10:15)
--- NOTE | 2020-07-23 14:57 | CON ---
[address] [address] CONSULTATION Name: MALLORIE HODGES Room: [address] IN M.R.#: [id number] Admission: 07/20/20 Attend Phys: Radha Drake MD Discharge: Date of : 38 Report #: [id number] THIS REPORT FOR: cc: Miguelangel Munson Vincent R. DO ~ Alex Russ MD DATE OF SERVICE: 07/21/2020 HISTORY OF PRESENT ILLNESS: This is an 80-year-old female patient whose consultation was requested today to evaluate the patient for the stroke. I reviewed the patient's records from Emergency Room as well as this admission and part of the records from prior admission. The patient herself provides some history, but she is aphasic and it is difficult to tell about the history. It looks like she came to the Emergency Room and she was seen by Dr. Douglas. The patient had a new onset of the right sided weakness as well as aphasia. Discussed the patient with Dr. 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 Subsequently, a CT angiogram of the head and neck was done and there was no thrombus or embolus found, which required any intervention. Therefore, it looks like she was never any candidate for any kind of intervention and she was admitted for further workup and management of her stroke. REVIEW OF SYSTEMS: Indicate, she basically wants to know when she can go home. It is difficult to tell in this patient because she has a lot of speech difficulty. I am going to talk to the nurses. Records indicate that she had a non-STEMI and she was evaluated and managed by Cardiology last time. At one time, she was noticed to be hypertensive emergency. When she came in, her blood pressure at one time was 248/126. The last blood pressure is 163/80. Aspirin has been added to her Eliquis. She did the best I can tell. She does not have any new eye symptoms. 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 She is not complaining of any ENT, cardiac, respiratory, GI, , musculoskeletal, constitutional, dermatological, hematological, psychiatric, throat, allergic symptom associated with present symptomatology. PAST MEDICAL HISTORY: Positive for cardiac problem. FAMILY HISTORY: Unremarkable. SOCIAL HISTORY: She does not smoke or abuse alcohol. PHYSICAL EXAMINATION: The patient's examination indicate [place] [address] CONSULTATION Name: MALLORIE HODGES Room: [address] IN [facility]#: [id number] Admission: 07/20/20 Attend Phys: Radha Drake MD Discharge: Date of : 38 Report #: [id number]. She is very difficult to understand, but she does talk and sometime I can understand, most of the time I can. Cranial nerve examination 2-12 was attempted. Her vision is very poor in the right eye, but that is her baseline. She has an obvious right facial palsy. On my examination, she is pretty significantly weak in the right upper and right lower extremity. She can barely move it against the gravity. So, I will give her about 2/5, but she can move it off the bed, but she said she can appreciate the position sense on both sides. She says she can feel the touch. Her tone looks mostly unremarkable. She does not appear to be ataxic. I did not make her walk because she is pretty weak. There is no meningeal sign. There is no carotid bruit. She is moderately built thin individual whose hearing and vision looks adequate. She has no carotid bruit. There is no thyroid mass. Cardiac examinations appear unremarkable and she says she is on anticoagulation because of DVT. Pulses are somewhat difficult to feel in the lower extremities, but there is no edema, cyanosis or jaundice. No respiratory difficulty or rhonchi was noticed. Blood pressure is 163/80, respirations 16, pulse is 84. LABORATORY DATA: Labs indicate a slightly low platelet count at 129. IMPRESSION: The patient's clinical finding is consistent with cerebrovascular accident. Her blood pressure is somewhat running on the lower side, then I will like it to be, so I will suggest permissive hypertension in this patient. She is already getting normal saline. It looks like she got labetalol in Emergency Room, but she is not getting anything now and I will suggest minimizing the antihypertensive to low blood pressure come up. I would like to do an MRI and MRA in this patient. She does appear to have a question of aneurysm so I will also like to look at it with an MRA to see if that is significant or not. All of it was talked to the family and I will also talk to the nurses and give them some instruction and that they should do the MRI today and try to keep the blood pressure high and not give any antihypertensive if the blood pressure is low. Thank you very much for this referral. <ELECTRONICALLY SIGNED> By: Alex Russ MD 07/23/20 1457 1445 1526Alex Russ MD /nt
== END 2020-07-23 16:28 | DRG 65 ==
LOC: M.ERS 20:59 → M.TBA-ER 23:44 → M.ICU 23:44 → M.2W 07-22 14:14
PROVIDERS: Internal Medicine; Personal Emergency Response Attendant; ADMIT Internal Medicine; ATTEND Internal Medicine
DX: I63.9 Cerebral infarction, unspecified (principal); E44.1 Mild protein-calorie malnutrition; I16.1 Hypertensive emergency; M19.90 Unspecified osteoarthritis, unspecified site; G89.29 Other chronic pain; M54.9 Dorsalgia, unspecified; Z96.652 Presence of left artificial knee joint; I49.3 Ventricular premature depolarization; Z96.643 Presence of artificial hip joint, bilateral; Z90.12 Acquired absence of left breast and nipple; Z20.822 Contact with and (suspected) exposure to COVID-19; Z90.49 Acquired absence of other specified parts of digestive tract; Z86.718 Personal history of other venous thrombosis and embolism; Z88.1 Allergy status to other antibiotic agents; Z88.0 Allergy status to penicillin; Z79.82 Long term (current) use of aspirin; Z79.899 Other long term (current) drug therapy; I25.2 Old myocardial infarction; Z79.01 Long term (current) use of anticoagulants; Z68.23 Body mass index [BMI] 23.0-23.9, adult; R47.1 Dysarthria and anarthria; R53.1 Weakness

== ENCOUNTER 2020-07-23 14:09 | Inpatient (IN) | payer MEDICARE ==
[~2020-07-23] VITALS: Ht 162.6 cm; Wt 62.1 kg
[~2020-07-23 14:09] MED LIST changes: +COLACE 100 MG100 MG PO; +LIPITOR 20 MG T20 M1 PO; +MILK OF MA2400 MG/11 PO; +MINOCYCLINE HC100 M2 PO; +MIRALAX17 GM PO; +OXYCODONE HCL 55 MG PO
[2020-07-23 17:00] VITALS: BP 188/91
[2020-07-23 17:48] LABS: HEMATOCRIT 38.5 % (37.0-47.0); HEMOGLOBIN 12.4 gm/dL (12.0-15.0); MCH 30.3 pg (26.0-34.0); MCHC 32.2 g/dL (28.0-37.0); MCV 94.1 fL (80.0-100.0); MPV 8.1 fl. (7.2-11.1); RBC 4.09 mil/uL (4.20-5.00); RDW-CV 15.8 % (10.5-14.5); WBC 7.9 thou/uL (4.0-11.0)
[2020-07-23 17:54] LABS: CALCIUM 7.2 mg/dL (8.5-10.1); CREATININE 0.8 mg/dL (0.6-1.3); POTASSIUM 3.3 mmol/L (3.5-5.1)
[2020-07-23 20:15] VITALS: BP 173/92
[2020-07-24 05:50] VITALS: BP 182/96
[2020-07-24 06:07] LABS: HEMATOCRIT 41.3 % (37.0-47.0); HEMOGLOBIN 13.7 gm/dL (12.0-15.0); MCH 30.2 pg (26.0-34.0); MCHC 33.1 g/dL (28.0-37.0); MCV 91.3 fL (80.0-100.0); MPV 7.7 fl. (7.2-11.1); RBC 4.53 mil/uL (4.20-5.00); RDW-CV 14.9 % (10.5-14.5); WBC 7.4 thou/uL (4.0-11.0)
[2020-07-24 06:11] LABS: CALCIUM 8.3 mg/dL (8.5-10.1); CREATININE 0.8 mg/dL (0.6-1.3)
[2020-07-24 07:30] VITALS: BP 197/108
[2020-07-24 10:05] VITALS: BP 157/94
[2020-07-24 10:26] LABS: MAGNESIUM 2.2 mg/dL (1.8-2.4); PHOSPHORUS* 3.1 mg/dL (2.5-4.9)
[2020-07-24 20:17] VITALS: BP 136/82
[2020-07-25 07:47] VITALS: BP 190/108
[2020-07-25 20:00] VITALS: BP 125/83
[2020-07-26 08:28] VITALS: BP 158/92
[2020-07-26 19:00] VITALS: BP 140/82
[2020-07-27 09:11] VITALS: BP 167/85
[2020-07-27 20:30] VITALS: BP 166/86
[2020-07-28 08:09] VITALS: BP 165/94
[2020-07-28 19:00] VITALS: BP 139/70
[2020-07-29 08:15] VITALS: BP 159/88
[2020-07-29 19:00] VITALS: BP 159/79
[2020-07-30 04:30] LABS: HEMATOCRIT 39.8 % (37.0-47.0); HEMOGLOBIN 13.1 gm/dL (12.0-15.0); MCHC 32.9 g/dL (28.0-37.0); MCV 91.4 fL (80.0-100.0); MPV 7.5 fl. (7.2-11.1); RBC 4.36 mil/uL (4.20-5.00); RDW-CV 15.1 % (10.5-14.5); WBC 7.3 thou/uL (4.0-11.0)
[2020-07-30 04:48] LABS: CALCIUM 7.8 mg/dL (8.5-10.1); CREATININE 1.1 mg/dL (0.6-1.3); POTASSIUM 3.9 mmol/L (3.5-5.1)
[2020-07-30 08:00] VITALS: BP 171/90
[2020-07-30 19:00] VITALS: BP 161/78
[2020-07-31 08:17] VITALS: BP 169/88
[2020-07-31 20:09] VITALS: BP 135/62
[2020-08-01 08:05] VITALS: BP 155/80
[2020-08-01 20:04] VITALS: BP 127/66
[2020-08-02 08:31] VITALS: BP 151/80
[2020-08-02 20:04] VITALS: BP 128/66
[2020-08-03 07:51] VITALS: BP 163/81
[2020-08-03 20:00] VITALS: BP 142/73
[2020-08-04 04:57] LABS: HEMATOCRIT 35.2 % (37.0-47.0); HEMOGLOBIN 11.7 gm/dL (12.0-15.0); MCH 30.5 pg (26.0-34.0); MCHC 33.1 g/dL (28.0-37.0); MCV 92.1 fL (80.0-100.0); MPV 7.9 fl. (7.2-11.1); RBC 3.82 mil/uL (4.20-5.00); RDW-CV 14.9 % (10.5-14.5)
[2020-08-04 05:08] LABS: CALCIUM 8.3 mg/dL (8.5-10.1); CREATININE 0.9 mg/dL (0.6-1.3); MAGNESIUM 2.4 mg/dL (1.8-2.4); POTASSIUM 3.8 mmol/L (3.5-5.1)
[2020-08-04 08:13] VITALS: BP 155/70
[2020-08-04 19:00] VITALS: BP 137/76
[2020-08-05 07:30] VITALS: BP 161/87
[2020-08-05 19:00] VITALS: BP 143/68
[2020-08-06 04:49] LABS: HEMATOCRIT 34.6 % (37.0-47.0); HEMOGLOBIN 11.4 gm/dL (12.0-15.0); MCH 30.3 pg (26.0-34.0); MCHC 33.1 g/dL (28.0-37.0); MCV 91.5 fL (80.0-100.0); MPV 8.1 fl. (7.2-11.1); RBC 3.78 mil/uL (4.20-5.00); RDW-CV 15.3 % (10.5-14.5); WBC 8.1 thou/uL (4.0-11.0)
[2020-08-06 04:54] LABS: CALCIUM 8.3 mg/dL (8.5-10.1); CREATININE 0.9 mg/dL (0.6-1.3); POTASSIUM 3.8 mmol/L (3.5-5.1)
[2020-08-06 07:30] VITALS: BP 168/93
[2020-08-06 08:20] VITALS: BP 168/93
[2020-08-06 20:00] VITALS: BP 136/67
[2020-08-07 08:28] VITALS: BP 172/80
[2020-08-07 20:15] VITALS: BP 133/72
[2020-08-08 08:00] VITALS: BP 159/76
[2020-08-08 20:12] VITALS: BP 131/66
[2020-08-08 21:00] VITALS: BP 131/66
[2020-08-09 07:40] VITALS: BP 155/81
[2020-08-09 20:00] VITALS: BP 119/62
[2020-08-10 07:30] VITALS: BP 167/80
[2020-08-10 19:52] VITALS: BP 134/68
[2020-08-11 07:30] VITALS: BP 173/80
[2020-08-11 20:05] VITALS: BP 137/68
[2020-08-12 07:33] VITALS: BP 155/83
[2020-08-12 19:00] VITALS: BP 121/70
[2020-08-13 05:13] LABS: HEMATOCRIT 34.8 % (37.0-47.0); HEMOGLOBIN 11.6 gm/dL (12.0-15.0); MCH 30.6 pg (26.0-34.0); MCHC 33.2 g/dL (28.0-37.0); MPV 7.8 fl. (7.2-11.1); RBC 3.78 mil/uL (4.20-5.00); RDW-CV 15.1 % (10.5-14.5); WBC 7.8 thou/uL (4.0-11.0)
[2020-08-13 05:26] LABS: CALCIUM 8.2 mg/dL (8.5-10.1); CREATININE 0.8 mg/dL (0.6-1.3); POTASSIUM 3.4 mmol/L (3.5-5.1)
[2020-08-13 08:00] VITALS: BP 152/75
[2020-08-13 19:00] VITALS: BP 137/70
[2020-08-14 08:07] VITALS: BP 147/76
[2020-08-14] MEDS ORDERED: COREG6.25 MG PO (19:47)
[2020-08-14] MEDS ORDERED: ELIQUIS2.5 MG PO (19:47)
[2020-08-14] MEDS ORDERED: LIPITOR 20 MG T20 M1 PO (19:47)
[2020-08-14] MEDS ORDERED: COZAAR 50 MG TA50 M1 PO (19:47)
[2020-08-14] MEDS ORDERED: VOLTAREN GEL 1100 G1 TOP (19:47)
[2020-08-14] MEDS ORDERED: OXYCODONE HCL 55 MG PO (19:47)
[2020-08-14] MEDS ORDERED: FLOMAX0.4 MG PO (19:47)
[2020-08-14 19:50] VITALS: BP 133/67
[2020-08-15 07:39] VITALS: BP 171/80
[2020-08-15 10:22] VITALS: BP 171/80
[2020-08-15 12:09] VITALS: BP 171/80
[2020-08-15 12:15] VITALS: BP 171/80
== END 2020-08-15 13:13 | disposition home health service (06) | DRG 56 ==
LOC: M.REH 14:09
PROVIDERS: Internal Medicine; ADMIT Physical Medicine & Rehabilitation; ATTEND Physical Medicine & Rehabilitation
DX: I69.351 Hemiplegia and hemiparesis following cerebral infarction affecting right dominant side (principal); I63.9 Cerebral infarction, unspecified; R47.1 Dysarthria and anarthria; I10 Essential (primary) hypertension; Z96.643 Presence of artificial hip joint, bilateral; Z96.652 Presence of left artificial knee joint; G47.00 Insomnia, unspecified; Z88.1 Allergy status to other antibiotic agents; Z88.0 Allergy status to penicillin; Z79.01 Long term (current) use of anticoagulants; Z85.831 Personal history of malignant neoplasm of soft tissue; Z90.12 Acquired absence of left breast and nipple; Z86.718 Personal history of other venous thrombosis and embolism; Z85.3 Personal history of malignant neoplasm of breast; Z79.899 Other long term (current) drug therapy; Z92.3 Personal history of irradiation

== ENCOUNTER 2020-08-27 22:53 | Inpatient (IN) | payer MEDICARE ==
[~2020-08-27] VITALS: Ht 162.6 cm; Wt 62.3 kg
--- NOTE | ~2020-08-27 | PROC ---
[address] [address] PROCEDURE REPORT Name: MALLORIE HODGES Room: [address] ADM IN M.R.#: [id number] Admission: 08/28/20 Attend Phys: Clifford Dougherty MD Discharge: Date of : 38 Report #: [id number] THIS REPORT FOR: cc: Miguelangel Munson Vincent R. DO ~ [facility],Medical Records Staff For GI report, please see the Provation report in Perceptive 7 content. By: [id number] Records Staff [facility] /[place]
[~2020-08-27 22:53] MED LIST changes: +COREG6.25 MG PO; +COZAAR 50 MG TA50 M1 PO; +VOLTAREN GEL 1100 G1 TOP
[2020-08-27 22:59] VITALS: BP 166/66
[2020-08-27 23:47] LABS: ABSOLUTE BASOPHILS 0.1 thou/uL (0.0-0.2); ABSOLUTE EOSINOPHILS 0.2 thou/uL (0.0-0.7); ABSOLUTE LYMPHOCYTES 2.2 thou/uL (0.8-5.3); ABSOLUTE MONOCYTES 1.1 thou/uL (0.0-1.2); ABSOLUTE NEUTROPHILS 6.6 thou/uL (1.6-8.1); BASOPHILS 0.5 %; EOSINOPHILS 1.9 %; HEMATOCRIT 40.2 % (37.0-47.0); HEMOGLOBIN 13.3 gm/dL (12.0-15.0); LYMPHOCYTES 21.7 %; MCH 30.4 pg (26.0-34.0); MCV 92.1 fL (80.0-100.0); MONOCYTES 10.6 %; MPV 7.8 fl. (7.2-11.1); NUCLEATED RBCS 0 /100WBC; PLATELET COUNT* 132 thou/uL (150-400); POLYS 65.3 %; RBC 4.37 mil/uL (4.20-5.00); RDW-CV 14.8 % (10.5-14.5); WBC 10.1 thou/uL (4.0-11.0)
[2020-08-27 23:55] LABS: CREATININE 1.8 mg/dL (0.6-1.3)
[2020-08-27 23:58] LABS: POTASSIUM 2.8 mmol/L (3.5-5.1)
[2020-08-28] VITALS (7 sets, daily range): BP systolic 119–171; BP diastolic 63–99
[2020-08-28] LABS: TOTAL BILIRUBIN 1.1 mg/dL (<0.1-1.0); TOTAL PROTEIN 6.6 g/dL (6.4-8.2)
[2020-08-28 02:04] LABS: URINE BILIRUBIN 1+ (Negative); URINE BLOOD TRACE (Negative); URINE CLARITY CLEAR; URINE COLOR DARK YELLOW; URINE GLUCOSE-RANDOM NEGATIVE (Negative); URINE KETONES TRACE (Negative); URINE LEUKOCYTES-REFLEX TRACE (Negative); URINE NITRITE-REFLEX NEGATIVE (Negative); URINE PROTEIN 2+ (Negative); URINE SPECIFIC GRAVITY >= 1.030 (1.005-1.030); URINE UROBILINOGEN 0.2 E.U./dl (0.2-1.0)
[2020-08-28 02:06] LABS: ICTOTEST (BILI CONFIRMATORY) Negative (Negative)
[2020-08-28 02:10] LABS: BACTERIA-REFLEX >30 Many /HPF (None Seen); HYALINE CASTS 0-3 Few /LPF (None Seen); MUCUS >6 Heavy strn/LPF (None Seen); SQUAMOUS 4-10 Moderate /LPF (0-3); URINE RBC 3-10 Few /HPF (0-2); URINE WBC-REFLEX 6-15 Few /HPF (0-5)
[2020-08-28 02:11] LABS: COARSE GRANULAR CASTS 4-10 Moderate /LPF (None Seen); CRYSTALS None Seen /LPF (None Seen); FINE GRANULAR CASTS 4-10 Moderate /LPF (None Seen)
--- NOTE | 2020-08-28 03:39 | NUR ---
PATIENT ARRIVED ON FLOOR AT APPROXIMATELY 0230. ADMISSION ASSESSMENT AND HISTORY COMPLETED. PATIENT STILL COMPLAINS OF NAUSEA AND DID HAVE SMALL AMOUNT OF YELLOW EMESIS. PATIENT CURRENTLY RESTING. PATIENT IS HIGH FALL RISK DUE TO FALLS PATIENT STATES SHE HAS HAD IN LAST [address] BED ALARM IN PLACE. PATIENT HAS FALL RISK BAND ON.
[2020-08-28 08:27] LABS: CALCIUM 8.3 mg/dL (8.5-10.1); CREATININE 1.4 mg/dL (0.6-1.3); POTASSIUM 3.4 mmol/L (3.5-5.1)
[2020-08-28 08:31] LABS: ALBUMIN 2.8 g/dL (3.4-5.0); MAGNESIUM 2.2 mg/dL (1.8-2.4); PHOSPHORUS* 3.5 mg/dL (2.5-4.9); TOTAL PROTEIN 6.2 g/dL (6.4-8.2)
--- NOTE | 2020-08-28 10:01 | EKG ---
[place] [address] ELECTROCARDIOGRAM REPORT Name: MALLORIE HODGES Room: [address] ADM IN M.R.#: [id number] Admission: 08/28/20 Attend Phys: Clifford Dougherty, Discharge: Date of : 38 Date of Service: 08/27/20 2350 Report #: [id number] THIS REPORT FOR: //name// [facility] ED Test Date: 2020-08-27 Test Time: 23:50:29 Pat Name: MALLORIE HODGES Department: Room: [address] Gender: F [employer] Officers [employer]: NAA : 1940 Requested By: Freya Douglas Order Number: [id number] MD: Dom Chand Measurements Intervals [place] Rate: 74 P: ID: QRS: -44 QRSD: 101 T: 59 QT: 438 QTc: 486 Interpretive Statements sinus rhythm with pac Left axis deviation Anterior infarct, old Baseline wander in lead(s) V1 Compared to ECG 07/20/2020 21:43:19 Ventricular premature complex(es) no longer present Myocardial infarct finding still present Electronically Signed On 08-28-2020 10:01:21 CDT by Dom Chand [email or web address] <ELECTRONICALLY SIGNED> By: Dom Chand MD, FACC 08/28/20 1001 49 49 Dom Chand MD, [facility] /EPI
--- NOTE | 2020-08-28 12:03 | NUR ---
Pt is A&O. Resides at home alone. Independent. Pt uses a walker for mobility. Pt states that she just left ARU 2 weeks ago. Pt is current with [facility], plans to resume at ca. Pt to have CT abd today. Goal is home at dc, CM to fax dc orders and referral to [phone]. Anticipate dc in a few days.
--- NOTE | 2020-08-28 19:27 | NUR ---
BEDSIDE REPORT GIVEN TO YU CRANE.
[2020-08-29 03:38] VITALS: BP 168/80
--- NOTE | 2020-08-29 06:24 | NUR ---
PATIENT SLEPT WELL DURING THIS SHIFT. PT ASSISTED WITH TURNS Q2H PER PROTOCAL. PT DENIES PAIN/NAUSEA. 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 PT IS ON ROOM AIR AND IS SALINE LOCKED. PT HAS BEEN NPO SINCE MIDNIGHT FOR EGD TODAY. FREQUENTLY USED ITEMS AND CALL LIGHT WITHIN REACH. SIDERAILS UPX3 AND BED ALARM ON. WILL CONTINUE TO MONITOR.
--- NOTE | 2020-08-29 10:24 | CON ---
[address] [address] CONSULTATION Name: MALLORIE HODGES Room: [address] IN M.R.#: [id number] Admission: 08/28/20 Attend Phys: Clifford Dougherty MD Discharge: Date of : 38 Report #: [id number] THIS REPORT FOR: cc: Miguelangel Munson Vincent R. DO ~ Abel Mendoza MD DATE OF SERVICE: 08/28/2020 REQUESTING PHYSICIAN: Clifford Dougherty MD. REASON FOR CONSULTATION: Acute kidney injury. 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 The patient recent discharge after she was hospitalized for COVID-19 infection. After discharge, she told me that her son to go to [employer] and she ate fish sandwich there. She felt that way____ she was not good, but she ate it anyway. When she came home, she started having nausea and vomiting continued for 24 hours. She came to the hospital, her creatinine was elevated. She was given fluids. Creatinine is much better now. PAST MEDICAL HISTORY: As I mentioned earlier. SOCIAL HISTORY: No tobacco, no alcohol abuse. FAMILY HISTORY: Noncontributory. MEDICATIONS: Reviewed. REVIEW OF SYSTEMS: Positive for nausea and vomiting but actually subsided now. No chest pain, no shortness of breath, no fever, no chills, no pollakiuria, no nocturia. PHYSICAL EXAMINATION: GENERAL: Awake, alert, oriented, no acute distress. VITAL SIGNS: Blood pressure 160/70, heart rate 86, afebrile. HEENT: Pupils are round. NECK: Supple. LUNGS: Clear. CARDIOVASCULAR: Regular rate. ABDOMEN: Soft. LOWER EXTREMITIES: [place] [address] CONSULTATION Name: MALLORIE HODGES Room: [address] IN [facility]#: [id number] Admission: 08/28/20 Attend Phys: Clifford Dougherty MD Discharge: Date of : 38 Report #: [id number] LABORATORY DATA: Serum sodium 139, potassium 3.4, chloride 103, carbon dioxide 31, BUN is 30, creatinine 1.4, was 1.8 on admission, it was normal before. ASSESSMENT: 1. Acute kidney injury due to nausea, vomiting and volume depletion. 2. Nausea, vomiting due to poisoning after she ate fish sandwich at [facility] [employer]. 3. Renal functions are improving. PLAN: Continue gentle hydration. I will sign off. <ELECTRONICALLY SIGNED> By: Abel Mendoza MD 08/29/20 1024 1127 1259Alexandr MD fredo Parikh
[2020-08-29 11:08] VITALS: BP 165/74
[2020-08-29 12:13] VITALS: BP 158/86
--- NOTE | 2020-08-29 12:28 | NUR ---
PT OF UNIT TO GI LAB.
--- NOTE | 2020-08-29 13:08 | NUR ---
Pt to have EGD today. IVABX. ?need for liver biopsy. GI following. Anticipate dc to home tomorrow with [facility]. Fax facesheet, H&P, and orders/med list to [phone]
--- NOTE | 2020-08-29 16:02 | NUR ---
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
--- NOTE | 2020-08-29 18:49 | NUR ---
PT HAD EGD TODAY AND NOW ON REGULAR DIET. PT WISHING TO GO HOME BUT DPOA WANTS HER TO WORK WITH PT/OT TO SEE IF REHAB IS NEEDED. PT RESTING IN BED TAKING IN GOOD PO. WILL CONTINUE TO ASSESS.
[2020-08-29 20:00] VITALS: BP 136/89
[2020-08-30] VITALS (7 sets, daily range): BP systolic 119–174; BP diastolic 74–84
--- NOTE | 2020-08-30 02:09 | NUR ---
PATIENT ASSESSMENT COMPLETED CHARTED. PATIENT HAS HAD NO COMPLAINTS OF NAUSEA. IV REMAINS SALINE LOCKED. WILL CONTINUE TO MONITOR.
--- NOTE | 2020-08-30 06:08 | NUR ---
PT IS ABLE TO COMMUNICATE HER NEEDS TO STAFF EFFECTIVELY. CURRENT PAIN MEDICATION REGIMEN HAS BEEN ADEQUATE FOR CONTROLLING HER PAIN UP TO THIS TIME. POSSIBLE DISCHARGE TODAY.
[2020-08-30] MEDS ORDERED: PROTONIX40 M2 PO (09:04)
[2020-08-30] MEDS ORDERED: CEFUROXIME250 MG PO (09:04)
--- NOTE | 2020-08-30 13:54 | NUR ---
CM INFORMED BY RN IN-CHARGE OF PT OF PHYSICIANS PLAN TO D/C PT HOME WITH HH TODAY. HOWEVER PT IS NOT AMBULATING WELL TODAY AND APPEARS TO BE CONFUSED. CM SPOKE TO THE PHYSICIAN TO DISCUSS THIS. PLAN TO HOLD DISCHARGE AT THIS TIME, AND ORDER PT/OT TO DETERMINE FOR POSSIBLE NEED FOR SNF PLACEMENT AT D/C. IF PT PROGRESSES AND IS ABLE TO D/C HOME THE PT WOULD LIKE TO RESUME HH WITH [facility] SHE WA ON-SERVICE WITH [facility] PRIOR TO ADMIT. CM WILL REMAIN AVAILABLE TO ASSIST AND FOLLOW NEEDED. [facility] PHONE: [phone] FAX: [phone]
--- NOTE | 2020-08-30 17:32 | NUR ---
PT IS ALERT AND ORIENTED BUT VERY FORGETFUL PT IS ANXIOUS CONCERNED ABOUT GOING HOME AND GETTING UP AND WALKING THERAPY ORDERS PLACED PT NEEDS HOME HEALTH AT LEAST SHE IS VERY WEAK TAKES MIN-MOD ASSIST TO BEDSIDE COMMODE CHRONIC BACK PAIN STATES OXY Q4H DOES NOT WORK SR ON THE MONITOR USES A WALKER AT HOME CALL LIGHT IN REACH
[2020-08-31 04:16] VITALS: BP 161/83
--- NOTE | 2020-08-31 04:26 | NUR ---
PT ALERT, ORIENTED, FORGETFUL. UP WITH MODERATE ASSIST OF ONE PERSON. TELEMETRY SHOWS SR. ON RA O2 SATS 92-93% REQUIRED PAIN MEDICATION TWICE.
[2020-08-31 08:00] VITALS: BP 173/98
[2020-08-31 16:00] VITALS: BP 132/84
--- NOTE | 2020-08-31 18:51 | NUR ---
PT IS ALERT AND ORIENTED X3 VERY FORGETFUL PT IS MED SURG NOW WALKED TO [facility] AND BATHROOM SAT UP IN CHAIR TODAY GAVE PAIN MED X2 TODAY TOLD PT MAYBE TO BACK OFF FROM IT CONSIDERING SHE JUST STARTED IT NOT LONG AGO AND WAS ON TRAMADOL BEFORE FOLLOW UPS WITH A PAIN CLINIC POSSIBLE TOO MUCH FOR HER EVEN IF IT IS ONLY 2.5MG LAST VISIT HERE SHE WASN'T LIKE THIS ACCORDING TO OTHER STAFF PT BECOMES ANXIOUS BUT IS LESS ANXIOUS TODAY NEPHEW CAME IN AND EXPLAINED THINGS TO HIM WELL PT SHOULD DC TOMORROW JUST NEED TO FIND OUT IF HOME HEALTH OR REHAB/SNF CALL LIGHT IN REACH
[2020-08-31 20:00] VITALS: BP 131/60
[2020-09-01] VITALS: BP 152/72
--- NOTE | 2020-09-01 06:24 | NUR ---
PT ALERT ORIENTED FORGETFUL. UP WITH MODERATE ASSIST FROM ONE. MED/SURG STATUS. POSS DC TO SKILLED TODAY
--- NOTE | 2020-09-01 07:25 | NUR ---
CHANGE OF SHIFT BEDSIDE REPORT GIVNE PATIENT SEEN AT BEDSIDE,IN BED ASLEEP ASSUMED PATIENT CARE
[2020-09-01 08:00] VITALS: BP 164/72
--- NOTE | 2020-09-01 11:21 | NUR ---
cm discussed hh vs snf with pt. pt wants to d/c home with [facility]. cm faxed orders to [facility] [phone]. cm informed pt [facility] will contact her at home to arrange visits.
[2020-09-01 11:24] VITALS: BP 164/72
[2020-09-01 12:00] VITALS: BP 103/43
--- NOTE | 2020-09-01 14:15 | NUR ---
DC TO HOME WITH H/H IV REMOVED PERSONAL BELONGINGS RETURNED DC PAPERWORK GIVEN PATIENT ASSISTED OUT VIA WC TO WAITNG CAR WITH NEPHEW
--- NOTE | 2020-09-03 10:08 | PATH ---
[address] [address] PATHOLOGY RPT PROCEDURE Name: MALLORIE HODGES Room: [address] IN M.R.#: [id number] Admission: 08/28/20 Date of : 36 Discharge: 09/01/20 Report #: [id number] Path Case #: [id number] [facility] Accession Number: [id number] . 01 Material submitted: . gastrointestinal site - ANTRAL BIOPSY FOR GASTRITIS . 01 Clinical history: . EGD IN OR N/V W ABNL LIVER FUNCTION, ARF, HYPOKALEMIA, WEAKNESS . 02 Diagnosis: Antral biopsy (for gastritis): - Moderate chronic antral gastritis with well-formed, non-caseating granuloma, negative for Helicobacter pylori, fungal and mycobacterial organisms. See comment. . (JERRY:sean; 09/02/2020) [facility] 09/03/2020 0952 Local . 02 Comment: The biopsies show benign gastric antral mucosa with a prominent well-formed non-caseating granuloma and no birefringent foreign material is identified when examined under cross polarized microscopy. Properly-controlled H. pylori immunohistochemical stain and Kinyoun and GMS special stains are all negative, although infectious causes are best excluded with cultures. The histologic differential also includes sarcoidosis and Crohn's disease. . (JERRY:mml; 09/02/2020) . 02 Electronically signed: . Edson Queen MD, Pathologist NPI- [id number] . 01 Gross description: . The specimen is received in formalin, labeled "Mallorie Hodges, antral biopsy for gastritis". Received are three segments of pale saunders tissue ranging in size from 0.3-0.4 cm in maximum dimensions. The specimen is submitted entirely in cassette A1. ([facility]; 09/01/2020) [facility] 09/01/2020 1121 Local . 02 Pathologist provided ICD-10: K29.50 . 02 CPT . 414505, C03398, 397515, 325886 [place] [address] PATHOLOGY RPT PROCEDURE Name: MALLORIE HDOGES Room: [address] IN M.R.#: [id number] Admission: 08/28/20 Date of : 38 Discharge: 09/01/20 Report #: [id number] Path Case #: [id number] Specimen Comment: A courtesy copy of this report has been sent to [phone] Specimen Comment: Report sent to Performed at: [address] [facility] [address], [place], [place] [id number] MD Hipolito Hagen MD Phone: [phone] Performed at: [address] [facility] [address] [address], [place], [place] [id number] MD Edson Queen MD Phone: [phone]
== END 2020-09-01 14:00 | disposition home health service (06) | DRG 441 ==
LOC: M.ERS 22:53 → M.2W 08-28 01:54 → M.TBA-ER 08-28 01:54 → M.2W 08-28 02:28
PROVIDERS: Internal Medicine; Personal Emergency Response Attendant; ADMIT Internal Medicine; ATTEND Internal Medicine
PROC: 0DB68ZX Excision of Stomach, Via Natural or Artificial Opening Endoscopic, Diagnostic (ICD-10-PCS; principal; 2020-08-29)
DX: K72.00 Acute and subacute hepatic failure without coma (principal); N17.0 Acute kidney failure with tubular necrosis; D68.59 Other primary thrombophilia; E44.1 Mild protein-calorie malnutrition; M48.56XA Collapsed vertebra, not elsewhere classified, lumbar region, initial encounter for fracture; K29.00 Acute gastritis without bleeding; E86.9 Volume depletion, unspecified; K75.81 Nonalcoholic steatohepatitis (NASH); R16.0 Hepatomegaly, not elsewhere classified; A05.9 Bacterial foodborne intoxication, unspecified; E87.6 Hypokalemia; K44.9 Diaphragmatic hernia without obstruction or gangrene; G89.29 Other chronic pain; R53.81 Other malaise; Z96.643 Presence of artificial hip joint, bilateral; Z96.652 Presence of left artificial knee joint; Z20.822 Contact with and (suspected) exposure to COVID-19; Z68.23 Body mass index [BMI] 23.0-23.9, adult; Z85.3 Personal history of malignant neoplasm of breast; Z90.12 Acquired absence of left breast and nipple; Z79.01 Long term (current) use of anticoagulants; Z79.899 Other long term (current) drug therapy; Z79.82 Long term (current) use of aspirin; Z88.1 Allergy status to other antibiotic agents; Z86.73 Personal history of transient ischemic attack (TIA), and cerebral infarction without residual deficits; Z28.21 Immunization not carried out because of patient refusal

== ENCOUNTER → 2021-04-28 | Outpatient (CLI) | payer MEDICARE ==
[~2021-04-28] MED LIST changes: +CEFUROXIME250 MG PO; +PROTONIX40 M2 PO
== END ==
LOC: M.MRI 14:42
PROVIDERS: ATTEND Orthopaedic Surgery
DX: S83.231A Complex tear of medial meniscus, current injury, right knee, initial encounter (principal); S83.271A Complex tear of lateral meniscus, current injury, right knee, initial encounter; M25.461 Effusion, right knee; M17.11 Unilateral primary osteoarthritis, right knee; X58.XXXA Exposure to other specified factors, initial encounter; Y93.89 Activity, other specified; Y92.89 Other specified places as the place of occurrence of the external cause; Y99.8 Other external cause status

== ENCOUNTER → 2021-05-13 | Outpatient (CLI) | payer MEDICARE ==
[~2021-05-13] MED LIST changes: +ADULT LOW DOSE81 MG PO; +LOSARTAN POTASS50 MG PO; +LOVENOX40 MG/0.4 SUBQ; +MYBETRIQ PO
[2021-05-13 12:36] LABS: ABSOLUTE BASOPHILS 0.1 thou/uL (0.0-0.2); ABSOLUTE EOSINOPHILS 0.7 thou/uL (0.0-0.7); ABSOLUTE LYMPHOCYTES 2.4 thou/uL (0.8-5.3); ABSOLUTE NEUTROPHILS 4.7 thou/uL (1.6-8.1); BASOPHILS 1.4 %; EOSINOPHILS 7.8 %; HEMATOCRIT 41.9 % (37.0-47.0); LYMPHOCYTES 26.9 %; MCH 30.8 pg (26.0-34.0); MCHC 33.5 g/dL (28.0-37.0); MCV 91.9 fL (80.0-100.0); MONOCYTES 10.8 %; MPV 7.2 fl. (7.2-11.1); NUCLEATED RBCS 0 /100WBC; PLATELET COUNT* 193 thou/uL (150-400); POLYS 53.1 %; RBC 4.56 mil/uL (4.20-5.00); RDW-CV 14.5 % (10.5-14.5); WBC 8.9 thou/uL (4.0-11.0)
[2021-05-13 12:41] LABS: URINE BILIRUBIN NEGATIVE (Negative); URINE BLOOD NEGATIVE (Negative); URINE CLARITY CLEAR; URINE COLOR YELLOW; URINE GLUCOSE-RANDOM NEGATIVE (Negative); URINE KETONES NEGATIVE (Negative); URINE LEUKOCYTES-REFLEX TRACE (Negative); URINE NITRITE-REFLEX NEGATIVE (Negative); URINE PROTEIN NEGATIVE (Negative); URINE SPECIFIC GRAVITY <= 1.005 (1.005-1.030); URINE UROBILINOGEN 0.2 E.U./dl (0.2-1.0)
[2021-05-13 12:46] LABS: PROTIME 10.3 Seconds (9.20-11.50)
[2021-05-13 12:52] LABS: ALBUMIN 3.3 g/dL (3.4-5.0); CALCIUM 8.7 mg/dL (8.5-10.1); POTASSIUM 3.1 mmol/L (3.5-5.1); TOTAL BILIRUBIN 0.6 mg/dL (<0.1-1.0)
[2021-05-13 13:01] LABS: SQUAMOUS 0-3 Few /LPF (0-3)
[2021-05-13 13:02] LABS: BACTERIA-REFLEX 1-9 Few /HPF (None Seen); CASTS None Seen /LPF (None Seen); CRYSTALS None Seen /LPF (None Seen); URINE RBC 0-2 Rare /HPF (0-2); URINE WBC-REFLEX 0-5 Rare /HPF (0-5)
--- NOTE | 2021-05-13 14:26 | EKG ---
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: : 1940 Requested By: Gen Calle Order Number: [id number] Reading MD: Wai Wood Measurements Intervals [place] Rate: 79 P: 66 [place]: 152 QRS: -49 QRSD: 97 T: 53 QT: 420 QTc: 482 Interpretive Statements Sinus rhythm Left anterior fascicular block Anterior infarct, old Compared to ECG 08/27/2020 23:50:29 Left anterior fascicular block now present Atrial premature complex(es) no longer present Myocardial infarct finding still present Electronically Signed On 05-13-2021 14:25:46 SERVICE LINE COORDINATOR by Wai Wood [email or web address] <ELECTRONICALLY SIGNED> By: Wai Wood MD, [facility] 05/13/21 1425 1303 1303 Wai Wood MD, [facility] /EPI
== END ==
LOC: M.LAB 06:30
PROVIDERS: ATTEND Orthopaedic Surgery
DX: Z01.818 Encounter for other preprocedural examination (principal); I44.4 Left anterior fascicular block; M17.11 Unilateral primary osteoarthritis, right knee

== ENCOUNTER 2021-05-19 07:09 | Inpatient (IN) | payer MEDICARE ==
[~2021-05-19] VITALS: Ht 162.6 cm; Wt 61.2 kg
--- NOTE | ~2021-05-19 | OP ---
[facility] [address] [place] [address] OPERATIVE REPORT Name: MALLORIE HODGES Room: [address] IN M.R.#: [id number] Admission: 05/19/21 Attend Phys: Joceline Doshi Discharge: Date of : 38 Report #: [id number] THIS REPORT FOR: cc: Miguelangel Munson Vincent R. DO Greiner, Robert F. II DO ~ DATE OF SURGERY: 05/19/2021 PREOPERATIVE DIAGNOSIS: Right knee osteoarthritis. POSTOPERATIVE DIAGNOSIS: Right knee osteoarthritis. PROCEDURE: Right total knee arthroplasty. SURGEON: Gen Calle II, DO. LITIGATION PARTNER: NEGRO Jimenez ANESTHESIA: Per operative record. ESTIMATED BLOOD LOSS: 50 mL. ANTIBIOTICS: Per operative record. DRAINS: Medium Hemovac. COMPLICATIONS: None. CONDITION: The patient stable to recovery room. DESCRIPTION OF PROCEDURE: The patient was taken to the operative suite, placed supine on the OR table, given appropriate anesthesia. A well-padded tourniquet applied to the upper thigh, which was inflated to 300 mmHg after gravity exsanguination. The operative knee was sterilely prepped and draped. Surgery began by midline incision, was carried down to subcutaneous tissues. A medial parapatellar arthrotomy was performed, carried down to bone. Patella was then everted and excess soft tissues were removed from the femur. Femoral cutting block was then applied, checked with a drop rotational alignment, pinned in appropriate position and appropriate cuts were made. A 4-in-1 cutting block was then applied, checked for rotational alignment, pinned in appropriate position and appropriate cuts were made. Tibia was then exposed. Excess meniscus was removed. Retractor was placed on collateral ligaments. Tibial cutting block was then applied, pinned in appropriate position, checked with a drop jd for rotational alignment and slope and appropriate cut was made. Tibial bone was removed. Tibial baseplate was then applied and checked for rotational alignment with the drop jd and pinned in appropriate position. [place] [address] OPERATIVE REPORT Name: MALLORIE HODGES Room: [address] IN M.R.#: [id number] Admission: 05/19/21 Attend Phys: Joceline Doshi Discharge: Date of : 38 Report #: [id number] and box cut was reamed. This was then trialed with appropriate spacer, which showed excellent fit and fill and excellent stability of the knee through all range of motion. Patella was then reamed in appropriate fashion, sized to appropriate size. Three peg holes were drilled and it was then trialed and shown to have excellent flexion, extension, excellent tracking of patella within the groove. These trials were removed. The tibia was punched in appropriate fashion. Bone ends were cleansed with Pulsavac irrigation and cement was mixed, applied to final implants. These were then malleted into position and held the knee in extension and compressed to allow cement to cure. After it cured, excess cement was removed utilizing [place] and osteotome. Wound was then copiously irrigated and the final spacer was malleted into position. Tourniquet was deflated. Hemostasis was obtained with electrocautery. Pain cocktail were injected. Capsule was closed with #2 FiberWire and 1 Vicryl in benmfr-vt-jyrlb fashion. Skin was closed with 2-0 Vicryl, running 3-0 Monocryl. Dermabond dressing applied. Robin wrap and PolarCare applied. The patient transported to recovery room in stable condition. COUNTS: Correct. By: [id number] Calle II, DO /nt
[2021-05-19 09:44] VITALS: BP 191/101
[2021-05-19 18:00] VITALS: BP 130/75
[2021-05-19 21:30] VITALS: BP 129/71
[2021-05-19 23:48] VITALS: BP 114/57
[2021-05-20 04:03] VITALS: BP 153/72
[2021-05-20 05:16] LABS: HEMATOCRIT 31.5 % (37.0-47.0); HEMOGLOBIN 10.4 gm/dL (12.0-15.0)
[2021-05-20 08:00] VITALS: BP 151/58
[2021-05-20 12:00] VITALS: BP 134/49
[2021-05-20 15:56] VITALS: BP 114/68
[2021-05-20 21:03] VITALS: BP 185/75
[2021-05-21 04:58] LABS: HEMATOCRIT 35.2 % (37.0-47.0); HEMOGLOBIN 11.5 gm/dL (12.0-15.0)
[2021-05-21 08:00] VITALS: BP 102/68
[2021-05-21] MEDS ORDERED: HYDROCODON-ACE1 EAC7 PO (15:09)
[2021-05-21] MEDS ORDERED: MYRBETRIQ25 MG PO (15:09)
[2021-05-21] MEDS ORDERED: XARELTO10 MG PO (15:09)
[2021-05-21 15:56] VITALS: BP 140/54
[2021-05-21 16:50] VITALS: BP 140/54
== END 2021-05-21 18:30 | DRG 470 ==
LOC: M.ORTHSURG 07:09 → M.TBA 08:35 → M.3W 08:35
PROVIDERS: Orthopaedic Surgery; ADMIT Internal Medicine; ATTEND Internal Medicine
PROC: 0SRC0J9 Replacement of Right Knee Joint with Synthetic Substitute, Cemented, Open Approach (ICD-10-PCS; principal; 2021-05-19)
DX: M17.11 Unilateral primary osteoarthritis, right knee (principal); I12.9 Hypertensive chronic kidney disease with stage 1 through stage 4 chronic kidney disease, or unspecified chronic kidney disease; M48.00 Spinal stenosis, site unspecified; Z96.652 Presence of left artificial knee joint; Z96.643 Presence of artificial hip joint, bilateral; K21.9 Gastro-esophageal reflux disease without esophagitis; N18.9 Chronic kidney disease, unspecified; H35.30 Unspecified macular degeneration; K59.00 Constipation, unspecified; R26.81 Unsteadiness on feet; G89.29 Other chronic pain; E78.5 Hyperlipidemia, unspecified; Z20.822 Contact with and (suspected) exposure to COVID-19; Z86.718 Personal history of other venous thrombosis and embolism; Z95.0 Presence of cardiac pacemaker; Z85.3 Personal history of malignant neoplasm of breast; Z87.891 Personal history of nicotine dependence; Z86.73 Personal history of transient ischemic attack (TIA), and cerebral infarction without residual deficits; Z79.899 Other long term (current) drug therapy; Z98.42 Cataract extraction status, left eye; Z98.41 Cataract extraction status, right eye; Z88.1 Allergy status to other antibiotic agents; Z90.12 Acquired absence of left breast and nipple; Z79.82 Long term (current) use of aspirin; Z87.448 Personal history of other diseases of urinary system; Z92.3 Personal history of irradiation; Z79.01 Long term (current) use of anticoagulants; Z87.19 Personal history of other diseases of the digestive system; Z87.898 Personal history of other specified conditions

== ENCOUNTER → 2021-07-27 | Outpatient (CLI) | payer MEDICARE ==
[~2021-07-27] MED LIST changes: +MYRBETRIQ25 MG PO
== END ==
LOC: M.RAD 13:55
PROVIDERS: ATTEND Family Medicine
DX: M25.551 Pain in right hip (principal); M85.88 Other specified disorders of bone density and structure, other site; Z96.643 Presence of artificial hip joint, bilateral